=== PATIENT | female | born 1995 | race African-American/Black ===

== ENCOUNTER 2019-06-13 08:00 | Outpatient (CLI) | payer OTHER ==
[2019-06-13 21:41] LABS: TRICHOMONAS VAGINALIS DNA NEGATIVE (NEGATIVE)
== END 2019-06-13 23:59 | disposition home or self-care (01) ==
LOC: LAB.R 08:00
PROVIDERS: ATTEND Nurse Practitioner Obstetrics & Gynecology
DX: Z36.85 Encounter for antenatal screening for Streptococcus B (principal)
CPT/HCPCS: 87491; 87591; 87661; 87797

== ENCOUNTER 2019-06-24 08:00 | Outpatient (CLI) | payer OTHER | END 2019-06-24 23:59 | disposition home or self-care (01) | LOC: LAB.N 08:00 | PROVIDERS: ATTEND Nurse Practitioner Obstetrics & Gynecology | DX: O99.280 Endocrine, nutritional and metabolic diseases complicating pregnancy, unspecified trimester (principal); Z3A.00 Weeks of gestation of pregnancy not specified | CPT/HCPCS: 36415; 84443 ==

== ENCOUNTER 2019-07-05 19:29 | Outpatient (CLI) | payer OTHER ==
[2019-07-05 19:46] VITALS: BP 128/78
--- NOTE | 2019-07-06 07:34 | PROVIDER PROGRESS NOTE ---
- HPI Chief Complaint: Labor Check Current : Current EDU 07/10/19 Gestation 39 Weeks and 2 Days 4 Para 1 Vital Signs Temperature 36.6 C 07/05/19 19:40 Heart Rate 128 H 07/05/19 19:40 Respiratory Rate 16 07/05/19 19:40 Blood Pressure 128/78 07/05/19 19:40 O2 Saturation 98 07/05/19 19:40 Temperature 36.6 C 07/05/19 19:40 Heart Rate 128 H 07/05/19 19:40 Respiratory Rate 16 07/05/19 19:40 Blood Pressure 128/78 07/05/19 19:40 O2 Saturation 98 07/05/19 19:40 - Procedures OB Procedure Performed: NST NST Procedure: NST reactive. Baseline 140s, moderate variability, + accels, one variable deceleration - overall reassuring. Service Date of procedure: 07/05/19 - Plan Plan: [place] presents to [facility] with c/o dark brown vaginal spotting in addition to contractions throughout the day which have been relatively inconsistent and varied in frequency an intensity but are currently every 7-10 minutes. She denies leakage of clear vaginal fluid and reports +FM. She denies abdominal pain or tenderness. She reports dark brown blood spot was noted approximately 1 hour ago when she went to the bathroom and steadily continued for 1 hour. BP normotensive. No abdominal tenderness noted. Pad noted to have very small, dime-sized amount of dark red blood. She was monitored x 1 hour and there was no continued bleeding. NST reactive. Baseline 140s, moderate variability, + accels, one variable deceleration - overall reassuring. She was monitoring x 1 hour secondary to the deceleration and FHR demonstrated a Category I pattern throughout. Contraction pattern remained consistently every 7-10 minutes with soft resting tone. No increase in frequency or intensity noted over the 1 hour period of time. Pt was released home with precautions. NST performed 07/05/2019 NST read 07/06/2019 FINAL DIAGNOSIS: False labor >37wks gestation
== END 2019-07-05 21:05 | disposition home or self-care (01) ==
LOC: WFO 19:29 → FBP 19:34 → WFO 21:05
PROVIDERS: ATTEND Obstetrics & Gynecology
DX: O47.1 False labor at or after 37 completed weeks of gestation (principal); Z3A.37 37 weeks gestation of pregnancy
CPT/HCPCS: 99213

== ENCOUNTER 2019-07-06 03:01 | Inpatient (IN) | payer OTHER ==
[2019-07-06] MEDS ORDERED: ONDANSETRON 4 MG/2 ML VIAL IVP PRN (03:26)
[2019-07-06] MEDS ORDERED: fentaNYL 100 MCG/2 ML VIAL IVP PRN (03:26)
[2019-07-06] MEDS ORDERED: SODIUM CHLORIDE FLUSH 0.9% 10 ML SYRINGE IVP PRN (03:26)
[2019-07-06] MEDS ORDERED: LACTATED RINGERS 1,000 ML IV ONE (03:27)
[2019-07-06] MEDS ORDERED: OXYTOCIN/DEXTROSE 5 % 30 UNIT/500 ML BAG IV ONE (03:27)
[2019-07-06] MEDS ORDERED: OXYTOCIN/DEXTROSE 5 % 30 UNIT/500 ML BAG IV PRN ×2 (04:00→05:11)
[2019-07-06] MEDS ORDERED: LACTATED RINGERS 1,000 ML IV SCH (04:00)
[2019-07-06 04:13] LABS: BASOPHILS % (AUTO) 0.2 %; EOSINOPHILS % (AUTO) 0.1 %; HGB - HEMOGLOBIN 13.3 g/dL (12.0-16.0); LYMPHOCYTES # (AUTO) 1.2 10^3/uL (1.5-3.5); LYMPHOCYTES % (AUTO) 9.2 %; MEAN CORPUSCULAR HEMOGLOBIN 31.9 pg (27.0-31.0); MEAN CORPUSCULAR HGB CONC 34.1 g/dL (32.0-36.0); MEAN CORPUSCULAR VOLUME 93.5 fL (81.0-99.0); MEAN PLATELET VOLUME 10.1 fL (7.9-10.8); MONOCYTES # (AUTO) 0.5 10^3/uL (0.0-1.0); MONOCYTES % (AUTO) 3.9 %; NEUTROPHILS # (AUTO) 10.8 10^3/uL (1.5-6.6); PLT - PLATELET COUNT 306 10^3/uL (130-450); RED BLOOD COUNT 4.17 10^6/uL (4.20-5.40); RED CELL DISTRIBUTION WIDTH 11.9 % (12.0-15.0); WHITE BLOOD COUNT 12.6 x10^3/uL (4.8-10.8)
--- NOTE | 2019-07-06 04:18 | HISTORY & PHYSICAL EXAMINATION ---
Admit History - Visit Reason Visit Reason: Contractions - : 2 Parity: 1 Premature: 0 Ectopic: 0 : 0 Care: positive: [facility] Risk/History: positive: None Complications This : positive: None Smoking Status: Never smoker - Mother's Labs Mother's RH: positive: Positive GBS: positive: Group B Step Negative Rubella Status: positive: Immune Review of Systems - Constitutional Constitutional: denies: Fever, Chills, Malaise - Eyes Eyes: denies: Blurred vision, Spots in vision, Dipolpia - Cardiovascular Cariovascular: denies: Irregular heart rate, Chest pain, Edema - Respiratory Respiratory: denies: SOB at rest - Integumentary Integumentary: denies: Rash, Pruritis - Neurological Neurological: denies: Headache Physical - Abdominal Exam Vital Signs: Temp Pulse Resp BP Pulse Ox 36.5 C 111 H 16 130/86 H 98 07/06/19 03:08 07/06/19 03:08 07/06/19 03:08 07/06/19 03:16 07/06/19 03:08 Contraction Frequency (min/apart): 2-4 Contraction Intensity: positive: Strong Uterine Resting Tone: positive: Soft - Monitoring Heart Rate Baseline: 140 - Presentation Presentation: positive: Vertex - Vaginal Exam Membranes: positive: Membranes intact Dilation (in cm): 9 Effacement (%): 100 Station: positive: -1 Cervical Position: positive: Anterior - Speculum Exam Speculum Exam Performed: positive: No Plan for Labor - Plan For Labor I expect patient to be DC'd or transferred within 96 hours.: Yes Plan for Labor: HPI: This 23yo @ 39.3wks gestation by LMP c/w 9.1wk U/S presented on 07/05/2019 with complaints of vaginal bleeding and contractions. She was monitored x 1 hour and FHR was reassuring, Category I and contractions remained consistently 7-9 minutes apart and were not increasing in frequency or intensit y. SVE was fingertip/50/-3, vertex and she was released home with precautions. She returned on 07/06/2019 @ approximately 0320 with complaints of contractions that rapidly increased in frequency and intensity since 2100 last night. Cervix noted to be 9/100/-1, vertex with intact membranes. She denies vaginal bleeding or leakage of fluid. She reports +FM. She has been a patient of [facility] since 36wks gestation at which time she transferred care from [facility] where she had received consistent care through the duration of her . Her has been complicated only by new diagnosis of hypothyroidism for which she was given a trial of 25mcg levothyroxine which she took PO daily x 30 days and then stopped. Her labs have remained WNL. OB Hx: G1: elective termination G2: 2016 SAB G3: 02/05/2017 @ 39wks, , epidural, Male, 6lbs 9oz, IOL due to concerns for IUGR G4: Current Dating criteria: LMP 10/03/2018 - AISHA Initial U/S @ 9.1wks gestation c/w LMP dating Medications: PNV Allergies: Pencillin PMHx: hypothyroidism isolated to and resolved Surgical Hx: none Social Hx: Never smoker, no ETOH or IVDA. currently deployed. G randmother coming for help with her son tomorrow Family Hx: FOB brother - sickle cell labs: O positive, antibody negative Rubella immune Genetic testing: CF neg; serum integrated screen negative TSH 02/14/19 0.24; 04/25/19 Free T4 1.1 Glucola 118 GBS NEG GC/CT neg Immunizations Influenza 02/11/2019 Tdap 04/29/2019 Physical Exam: Normocephalic, atraumatic Heart RRR w/o M/G/R Lungs CTAB Abdomen gravid, soft, nontender EFW 3200g SVE 9/100/0, vertex with intact membranes followed by AROM at 0340 FHR baseline 140s, moderate variability, + accels, no decels Contractions palpate firm every 2-4 minutes with soft resting tone Bilaeral LE's no edema. Assessment: 23yo @ 39.3wks gestation by LMP c/w 9.1wk U/S Active labor GBS neg Plan: Admit for expectant management Continuous monitoring Anticipate
--- NOTE | 2019-07-06 04:21 | PROVIDER PROGRESS NOTE ---
Labor Progress Note - Uterine Monitoring Uterine Monitoring Mode: positive: External toco Contraction Frequency (min/apart): 2-4 Contraction Intensity: positive: Strong Uterine Resting Tone: positive: Soft - Monitoring Monitor Mode: positive: External ultrasound Heart Rate Baseline: 140 Heart Rate Variability: positive: Moderate (6-25 bmp) Accelerations: positive: Present, 15x15 Decelerations: positive: Early, Intermittent (<50% x20 min) Strip Review: positive: Category I - Vaginal Exam Dilation (in cm): anterior lip Effacement (%): 100 Station: 0 Cervical Position: Anterior - Labor Progress Note Labor Progress Note/Additional Text: S: Breathing through contractions. Lack of support and has 2 year old son with her. Talking to her and mother on FaceTime. Mood is good. Feeling intermittently increased pressure. O: FHR baseline 140s, moderate variability, + accels, early decelerations Contractions palpate firm every 2-4 minutes with soft resting tone SVE deferred at this time A: 23yo 2 39.3wks gestation by LMP c/w 9.1wk U/S Active labor GBS neg P: Encouraged position changes in bed Anticipate
[2019-07-06] MEDS ORDERED: WITCH HAZEL/GLYCERIN 1 PAD TOP PRN (05:10)
[2019-07-06] MEDS ORDERED: HYDROCORTISONE 1% CREAM 28 GM TUBE PR PRN (05:10)
--- NOTE | 2019-07-06 05:10 | DELIVERY NOTE ---
Delivery Note - Labor Labor: positive: Spontaneous - Delivery Method Delivery Method: positive: Spontaneous vaginal delivery - Presentation Presentation: positive: Vertex, SIVAKUMAR - left occiput anterior - Nuchal Cord Nuchal Cord: positive: Present - Amniotic Fluid Description Amniotic Fluid Description: positive: Light meconium - Episiotomy Type Episiotomy Type: positive: None - Laceration Laceration: positive: None - Delivery Outcome Delivery Outcome: positive: Livebirth - [place]: positive: Placed in direct skin contact with mother, Bulb syringe, Stimulated, Warmed, [place] used sex: positive: Female - Cord Cord: positive: 3 vessels - Placenta Placenta: positive: Intact, Spontaneous - Estimated Blood Loss Estimated Blood Loss (in cc): 150 - Post Delivery Events Post Delivery Events: positive: No post delivery events - Delivery Comments (Free Text/Narrative) Delivery Comments (Free Text/Narrative): Labor: This 23yo @ 39.3wks gestation presented on 07/06/2019 with c/o contractions which had increased in frequency and intensity over the past several hours. Upon arrival cervix was 9/100/-1, vertex with intact membranes. FHR demonstrated Category I pattern throughout labor. Normal labor course. AROM occurred at 0340 and was noted to be lightly meconium stained. Urge to push shortly after and pt was noted to be c/c/+1 at 0430 with onset of active pushing effort at 0432. : Normal of a viable female on 07/06/2019 @ 0447. Nuchal cord x 1 and pt delivered through the cord. The was stimulated, dried, and placed skin to skin. 's 7/9 at 1 and 5 min respectively. The umbilical cord was allowed to stop pulsating at which time it was doubly clamped and cut by CNM. Pitocin administered via IV for hemostasis. Cord blood was obtained. EBL 150mL. Fourth stage: Uterine fundus firm and there is no excessive bleeding. The perineum, vagina, and cervix were inspected and found to be intact. Breastfeed ing initiated. Family bonding well. Both mother and baby were left in stable condition.
[2019-07-06] MEDS: IBUPROFEN 800 MG TABLET PO SCH ×2 (05:28→11:51)
[2019-07-06] MEDS ORDERED: ACETAMINOPHEN 500 MG TABLET PO SCH (06:00)
[2019-07-06] MEDS: DOCUSATE SODIUM 100 MG CAPSULE PO SCH ×2 (09:26→20:57)
--- NOTE | 2019-07-07 08:07 | Discharge Plan ---
Discharge Plan Problem Reviewed?: Yes Disposition: Home, Self Care Condition: Good Diet: Regular Activity Restrictions: No Restrictions Shower Restrictions: No Weight Bearing: Full Weight No Smoking: If you smoke, Please STOP! Call for help. Follow-up with: Aimee Mondragon CNM, ARNP [Provider Admit Priv/Credential] -
--- NOTE | 2019-07-07 08:07 | PROVIDER PROGRESS NOTE ---
Subjective - Subjective Subjective: FINAL PROGRESS NOTE: S: Bonding well with baby. without difficulty. Was up a significant portion of the night feeding her as she wanted to eat all the time so she is feeling tired but otherwise well. She denies pain. Reports some mild/moderate cramping with nursing but feels well controlled with oral medications. Bleeding decreased and is light. She is excited to get to go home today. Has the support of her grandmother. O: BP 119/79, HR 79, RR 16, T 36.7 Heart RRR w/o M/G/R, Lungs CTAB, abdomen soft and nontender with fundus firm at U-1, bilateral LE's no edema. Light lochia rubra. A: 23yo -->P2 PPD#1 s/p TSVD of viable female Perineum intact P: Reviewed pp self care and warning s/sx Advised continuation of PNV while Advised continuation of ibuprofen and tylenol OTC as needed for pain Planning minipill for contraception - will initiate at pp visit. [facility] pp visit or sooner PRN. Pt verbalized understanding and agrees to above plan. She denies further questions or concerns at this time. Objective - Vital Signs/Intake & Output Vital Signs: Vital Signs x48h Temp Pulse Resp BP Pulse Ox 07/07/19 04:16 36.7 C 79 16 119/79 100 Intake & Output: Intake & Output 07/04/19 07/05/19 07/06/19 07/07/19 23:59 23:59 23:59 23:59 Intake Total 1500 Output Total 1350 Balance 150 - Lab Results Fish Bones: 07/06/19 03:40
--- NOTE | 2019-07-07 08:17 | DISCHARGE SUMMARY ---
Physician: ELLIOTT Molina DATE OF ADMISSION: 07/06/2019 DATE OF DISCHARGE: 07/07/2019 DIAGNOSES ON DISCHARGE: A 23-year-old G4, P1-0-2-1 with complaints of contractions, which had increa sed in frequency and intensity over the past several hours. HISTORY OF PRESENT ILLNESS: Upon arrival, her cervix was 2 cm dilated, 100% effaced, -1 station, lita blank position with intact membranes. heart rate pattern demonstrated a category 1 pattern throu ghout labor. She progressed to complete and artificial rupture of membranes occurred at 0340 and was noted to be lightly meconium stained. She spontaneously delivered a viable female on 020 at 0447. Apgars were 7 and 9 at 1 and 5 minutes, respectively. EBL 150 mL. The perineum, vagin a and cervix were inspected and found to be intact. She has been doing well in her course. She is ambulating and tolerating a regular diet. She is urinating without difficulty and her lochia is normal. Her pain is well controlled with oral medications. She will be discharged home today on day #1 with instructions to continue he r vitamin while , and to continue taking ibuprofen and Tylenol [id number] as needed for pain management. She intends to follow up with myself at [facility] in 3 weeks for routine visit or sooner if needed. She has been given precautions to call if she has any worsening fevers, chills, abdominal pain, increased bleeding or foul-smelling vaginal lochia. TD: 07/07/2019 08:13
[2019-07-07 08:53] VITALS: BP 117/78
[2019-07-07] MEDS: IBUPROFEN 800 MG TABLET PO SCH (09:05)
[2019-07-07] MEDS: DOCUSATE SODIUM 100 MG CAPSULE PO SCH (09:05)
--- NOTE | 2019-07-07 14:19 | Labor Flowsheet ---
Labor Flowsheet Datetime Report Generated by CPN: 07/07/2019 14:19 Datetime: 07/07/2019 07:54 VITAL SIGNS NBP Sys/Lali/Mean (mmHg): 117 : 78 : 87 Pulse: 90 COMMUNICATION LaborFlag: Labor Datetime: 07/06/2019 09:13 SpO2 (%): 99 Datetime: 07/06/2019 04:58 Membranes Ruptured Date/Time: 07/06/2019 03:40 Amniotic Fluid Odor: Normal Datetime: 07/06/2019 04:47 UTERINE ACTIVITY Monitor Mode: External Frequency (min): 1.5-4 Quality: Strong Duration (sec): 60-90 Pattern: Normal: <= 5 Contractions in 10 Minutes Resting Tone (Palpate): Relaxed ASSESSMENT A Monitor Mode: Telemetry FHR Baseline Rate : 135 Variability: Moderate 6-25 bpm Accelerations: 15X15 Decelerations: Variable Category: Category II Datetime: 07/06/2019 04:39 STAGE 2 Pushing: Urge to Push; Involuntary Pushing Pushing Position: Pushing with Contractions; Pushing Lithotomy Pushing Progress: Descent with Pushing; Pushing Effectively with Contractions Datetime: 07/06/2019 04:30 VAGINAL EXAM Dilatation (cm): 10.0 Effacement (%): 100 Station: 1 Exam by: A. Alanna, CNM Datetime: 07/06/2019 04:25 PATIENT CARE Patient Care Comments: closed knee Datetime: 07/06/2019 04:00 Stage of : Labor
== END 2019-07-07 14:00 | disposition home or self-care (01) | DRG 807 ==
LOC: WFO 03:01 → FBP 03:03 → WFO 03:25 → FBP 03:26
PROVIDERS: ADMIT Nurse Practitioner Obstetrics & Gynecology; ATTEND Nurse Practitioner Obstetrics & Gynecology
PROC: 10E0XZZ Delivery of Products of Conception, External Approach (ICD-10-PCS; principal; 2019-07-06)
PROC: 10907ZC Drainage of Amniotic Fluid, Therapeutic from Products of Conception, Via Natural or Artificial Opening (ICD-10-PCS; 2019-07-06)
DX: O99.284 Endocrine, nutritional and metabolic diseases complicating childbirth (principal); Z37.0 Single live birth; O69.9XX0 Labor and delivery complicated by cord complication, unspecified, not applicable or unspecified; O77.0 Labor and delivery complicated by meconium in amniotic fluid; Z3A.39 39 weeks gestation of pregnancy
CPT/HCPCS: 85025; 86850; 86900; 86901; A9270; J7120; 99213

== ENCOUNTER 2020-05-29 07:00 | Outpatient (CLI) | payer OTHER ==
[2020-06-01 13:11] LABS: BASOPHILS % (AUTO) 0.3 %; EOSINOPHILS # (AUTO) 0.1 10^3/uL (0.0-0.7); HGB - HEMOGLOBIN 12.9 g/dL (12.0-16.0); LYMPHOCYTES # (AUTO) 1.9 10^3/uL (1.5-3.5); LYMPHOCYTES % (AUTO) 31.5 %; MEAN CORPUSCULAR HEMOGLOBIN 31.5 pg (27.0-31.0); MEAN CORPUSCULAR HGB CONC 32.8 g/dL (32.0-36.0); MEAN CORPUSCULAR VOLUME 96.1 fL (81.0-99.0); MEAN PLATELET VOLUME 9.7 fL (7.9-10.8); MONOCYTES # (AUTO) 0.4 10^3/uL (0.0-1.0); MONOCYTES % (AUTO) 6.8 %; NEUTROPHILS # (AUTO) 3.7 10^3/uL (1.5-6.6); NEUTROPHILS % (AUTO) 60.2 %; PLT - PLATELET COUNT 259 10^3/uL (130-450); RED BLOOD COUNT 4.09 10^6/uL (4.20-5.40); RED CELL DISTRIBUTION WIDTH 11.6 % (12.0-15.0); WHITE BLOOD COUNT 6.2 x10^3/uL (4.8-10.8)
== END 2020-05-29 23:59 | disposition home or self-care (01) ==
LOC: LAB 07:00
PROVIDERS: ATTEND Obstetrics & Gynecology
DX: Z30.2 Encounter for sterilization (principal); Z20.822 Contact with and (suspected) exposure to COVID-19
CPT/HCPCS: 85025

== ENCOUNTER 2020-06-07 06:39 | Day surgery (SDC) | payer OTHER ==
--- NOTE | 2020-06-03 11:49 | HISTORY & PHYSICAL EXAMINATION ---
HPI - History of Present Illness HPI Comment/Other: Patient is a 24-year-old G4, P2 here for preoperative evaluation for bilateral tubal ligation. Patient reports that she has had 4 pregnancies with 2 deliveries. She has had 1 SAB and 1 TAB. She has no history of abnormal Pap smears but she is due for a Pap and desires this to be done under anesthesia. She had been taking oral contraceptives and stopped on April 01 after her partner had been deployed she has not been sexually active since March when her went overseas. She has no significant past medical history. She did an umbilical hernia repair at age 6. She has been counseled by Aimee Mondragon in February 2020 and understands that bila teral tubal ligation is an irreversible and permanent procedure that will render her unable to conceive spontaneously following the procedure. She is confident in her decision to move forward with a sterilization. Allergies: PENICILLIN V POTASSIUM (Critical) Medications: ORTHO MICRONOR 0.35 MG ORAL TABLET (NORETHINDRONE) Take one tablet by mouth once daily; Route: ORAL PRE- FORMULA ORAL TABLET ( [id number]) one by mouth daily; Route: ORAL Problems: Preoperative examination (ICD-V72.84) ([id number]) Amenorrhea (ICD-626.0) (SIX57-D65.2) Sterilization counseling (ICD-V25.09) (AAU75-G02.09) care and examination of lactating mother (ICD-V24.1) ([id number]-V59.1) Thyroid disorder complicating , unspecified trimester (ICD-648.13) ([id number]-O37.280) Family History Summary: Family History Reviewed: 05/29/2020 Family History of Other Medical Problems for Other, FOB brother- sickle cell - Entered On: 05/16/2019 Social History Summary: Patient has never smoked. Patient has never used smokeless tobacco. 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 No Are you currently using contraception? Yes Are you satisfied with your current control? Yes Education provided to patient? No Completed by: JUSTINO Schmidt (May 29, 2020 1:39 PM) What is your current type of control? Female sterilization End Method: Female sterilization Past Medical History: Reviewed and updated today: None Past Surgical History: Reviewed and updated today: umbical hernia repair. [employer] Review of Systems ROS Comments: As per HPI, otherwise remaining systems are negative. Physical Constitutional: GEN: NAD HEAD: NCAT EYES: No scleral icterus or conjunctival injection NECK: No cervical LAD or TM CV: RRR RESP: CTAB, normal effort ABD: S&NT/ND PSYCH: appropriate affect NEURO: alert and oriented, normal gait and coordination EXT: WWP Impression & Recommendations: Problem # 1: Preoperative examination (ICD-V72.84) ([id number]) Preop examination for laparoscopic bilateral salpingectomy We discussed risks, benefits, alternatives. Confirmed [facility] BTL consents signed 02/2020 We reviewed that this is an irreversible procedure that janneth render her unable to spontaneously conceive in the future. She confirmed her commitment to proceed. Reviewed all surgical procedures carry risks of bleeding, infection, and damage nearby tissue and organs. Discussed the risk of infection with blood transfusion is relatively low. Risk of HIV is 1 in 2 million nationwide, risk of hepatitis is 1/million nationwide. Reviewed for possibility of transfusion reaction and possible management with medications. She is provided consent for blood transfusion. Reviewed lower risk procedure for infection and antibiotics are not indicated for prophylaxis. We discussed the anatomical proximity of other organs near the fallopian tubes including but not limited to the ovaries, bladder, ureters, and bowel. As surgeons, we used a number of surgical to techniques to avoid damaging any of these other organs. We reviewed, that despite her best efforts, sometimes injury occurs to these organs. We discussed that this may cause complicated po st operative course. We reviewed that with bleeding that cannot be controlled or with limited residual stroma, she may undergo oophorectomy. That will be avoided as much as possible and will be conducted only under scenarios that fully preclude salvage of the ovary. We also discussed the possibility of converting to an open or procedure. She provided consent to all of the above as well and pap smear under anesthesia. We will proceed to surgery with a scheduled operating room date. Orders: PRE OP -[id number] ([id number]) PMH/PSH - Past Medical History Cardiovascular: positive: None Respiratory: positive: None Endocrine/Autoimmune: positive: None GI: positive: None : positive: None HEENT: positive: Chronic vision loss Psych: positive: None Musculoskeletal: positive: None Derm: positive: Eczema MRSA Hx?: No - Past Surgical History General: positive: Other Social & Family Hx - Social History Smoking Status: Never smoker Meds/Allgy - Home Medications Home Medications: Ambulatory Orders Medication Instructions Recorded Confirmed No Known Home Medications 05/31/20 05/31/20 - Allergies Allergies/Adverse Reactions: Allergies Allergy/AdvReac Type Severity Reaction Status Date / Time Penicillins Allergy Hives Verified 07/06/19 05:09
[~2020-06-07 06:39] MED LIST: ACETAMINOPHEN 1,000 MG/100 ML 100 ML IV ONE; CELECOXIB 100 MG CAPSULE PO ONE; GABAPENTIN 400 MG CAPSULE ONE
[2020-06-07 07:03] LABS: HCG UR QUAL NEGATIVE
[2020-06-07] MEDS ORDERED: LACTATED RINGERS 1,000 ML IV ONE ×2 (07:12→10:05)
[2020-06-07] MEDS ORDERED: LIDOCAINE-MPF 2% 5 ML VIAL ONE (07:13)
[2020-06-07] MEDS ORDERED: PROPOFOL 200 MG/20 ML VIAL IVP ONE (07:13)
[2020-06-07] MEDS ORDERED: ONDANSETRON 4 MG/2 ML VIAL ONE (07:13)
[2020-06-07] MEDS ORDERED: ROCURONIUM 50 MG/5 ML VIAL ONE (07:13)
[2020-06-07] MEDS ORDERED: DEXAMETHASONE 4 MG/ML VIAL ONE (07:13)
[2020-06-07] MEDS ORDERED: fentaNYL 100 MCG/2 ML VIAL ONE (07:16)
[2020-06-07] MEDS ORDERED: MIDAZOLAM 2 MG/2 ML VIAL ONE (07:16)
--- NOTE | 2020-06-07 07:20 | ANESTHESIA ---
Pre-Anesthesia VS, & Labs - Diagnosis Desires sterilization - Procedure bilateral salpingectomy with pap smear Vital Signs: Temp Pulse Resp BP Pulse Ox 36.2 C L 72 16 129/73 100 06/07/20 06:34 06/07/20 06:34 06/07/20 06:34 06/07/20 06:34 06/07/20 06:34 Height: 5 ft 6 in Weight (kg): 89.5 kg Body Mass Index: 31.8 BMI Classification: Obese - NPO >8 hours - Is Patient ?: No Home Medications and Allergies Home Medications: Ambulatory Orders No Known Home Medications 05/31/20 No Known Home Medications 05/31/20 Allergies/Adverse Reactions: Allergies Allergy/AdvReac Type Severity Reaction Status Date / Time Penicillins Allergy Hives Verified 07/06/19 05:09 Anes History & Medical History - Anesthetic History Anesthesia Complications: reports: No previous complications - Medical History Cardiovascular: reports: None Pulmonary: reports: None Gastrointestinal: reports: None Urinary: reports: None Neuro: reports: None Musculoskeletal: reports: None Endocrine/Autoimmune: reports: None Blood Disorders: reports: None Skin: reports: Eczema Smoking Status: Never smoker Psychosocial: reports: No issues indicated History of Cancer?: No - Surgical History General: Other Exam General: Alert, Oriented x3, Cooperative, No acute distress Dental: WNL Mouth Openin Fingerbreadth Neck Mobility: Normal Mallampati classification: II Thyromental Distance: 4-6 cm Respiratory: Lungs clear, Normal breath sounds, No respiratory distress, No accessory muscle use Cardiovascular: Regular rate, Normal S1, Normal S2, No murmurs Mental/Cognitive Status: Alert/Oriented X3, Normal for patient Plan Anesthesia Type: General Consent for Procedure(s) Verified and Reviewed: Yes Code Status: Attempt Resuscitation ASA classification: 1-Healthy patient Is this case an emergency?: No
[2020-06-07] MEDS ORDERED: LIDOCAINE 2%-EPI 1:100000 20 ML MDV ONE (07:34)
[2020-06-07] MEDS ORDERED: BUPIVACAINE 0.25% PF 30 ML VIAL ONE (07:34)
[2020-06-07] MEDS ORDERED: SCOPOLAMINE PATCH TOP SCH (08:00)
[2020-06-07] MEDS ORDERED: BUPIVACAINE 0.25% PF 30 ML VIAL SUBQ ONE ×2 (09:00)
[2020-06-07] MEDS ORDERED: LIDOCAINE 2%-EPI 1:100000 20 ML MDV SUBQ ONE ×2 (09:01)
[2020-06-07] MEDS ORDERED: oxyCODONE 5 MG TABLET PO PRN (10:05)
--- NOTE | 2020-06-07 10:10 | OPERATIVE REPORT ---
Operative Report - General Procedure Date: 06/07/20 Planned Procedure: Bilateral salpingectomy with pap smear Pre-Op Diagnosis: Desires sterilization. Due for cervical cancer screening Procedure Performed: Bilateral salpingectomy with pap smear Post Op Diagnosis: Same with bilateral paratubal cysts - Procedure Note Primary Surgeon: Oskar Irvin MD Secondary Surgeon: Marisela Colunga MD Anesthesia Provider: Oskar Partida CRNA Anesthesia Technique: General ET tube Pathology: Bilateral fallopian tubes. Pap collected and sent through clinic IV Fluids (mL): 900 Estimated Blood Loss (mL): 5 Urine Output (mL): 0 (voided prior to procedure) Indications: 24 yo female who desires sterilization and is due for cervical cancer screening Findings: Normal appearing uterus and ovaries. Both fallopian tubes had 2 cm paratubal cysts that were too frirm to decompress and pass through the 5 mm ports. Normal liver edge and survey of the abdomen. Complications: None - Other Other Information/Narrative: Risks benefits and alternatives of the procedure were reviewed. Consent was again confirmed. Patient was brought to the operating room and underwent general anesthesia. She was placed in dorsal lithotomy position with legs resting in yellowfin stirrups. SCDs were in place and activated. Prior to prepping, a speculum was placed and pap smear was collected. Instruments were then removed from the vagina. She was then prepped and draped in the usual sterile fashion. Surgical timeout was performed. Bimanual exam was performed. Sterile speculum was placed. The cervix was visualized. Uterus sounded to 7 cm. The Humi uterine manipulator was placed. The base of the umbilicus was anesthetized with intradermal injection of 2% lidocaine with epinephrine mixed with 0.25% Marcaine. A 5 mm skin incision was made with a scalpel. A 5 mm blunt trocar was inserted under direct visualizatio n using Visiport. Once the port was confirmed to be placed intraperitoneally, the abdomen was insufflated to 15 mmHg with CO2 gas Exploration of the abdomen and pelvis was confirmed that no injury was sustained with placement of the trocar. Two additional 5 mm ports were placed in the right and left lower quadrants, taking care to avoid the epigastric arteries, while under direct visualization via laparoscopic guidance. The abdomen was explored with the laparoscope, with findings as noted. The left fallopian tube was grasped and elevated at the fimbriated end. The underlying mesosalpinx was sealed and resected to the insertion point on the uterine cornua using the Ligasure device. The tube was then sealed and transected at the insertion point at the cornua. The tube was put aside in the cul de sac. The procedure was repeated on the right side. The right tube also had large firm peritubal cysts that were not amenable to removal from the pelvis through the lateral port. It was put aside. The left lateral port was expalned to accommodate a 100 mm port. The 10 mm port was palced and an Endocatch bag was used to retrieve both tubes from the pelvis. Good hemostasis was noted. The 10 mm port was removed and the fascia was closed with the Jewel Tomason device. The abdomen was partially desufflated. Pedicles were observed under decreased pressure and good hemostasis was again confirmed. Abdomen was then completely desufflated. All instruments were removed from the abdomen. Skin was closed with interrupted subcuticular stitches using 4-0 Monocryl. Dermabond was applied over the suture sites. The Humi manipulator was removed from the uterus. Again, good hemostasis was noted. The final sponge needle and instrument counts were correct at completion of the procedure patient was awakened taken to the postanesthesia care unit in stable condition. Dr. Colunga assisted with suturing and retraction.
[2020-06-07] MEDS ORDERED: HYDROmorphone 0.5 MG/0.5 ML SYRINGE IVP PRN (10:33)
[2020-06-07] MEDS ORDERED: fentaNYL 100 MCG/2 ML VIAL IVP PRN (10:33)
[2020-06-07] MEDS ORDERED: METOCLOPRAMIDE 10 MG/2 ML VIAL IVP PRN (10:33)
[2020-06-07] MEDS ORDERED: ePHEDrine 50 MG/ML VIAL IVP PRN (10:33)
[2020-06-07] MEDS ORDERED: MORPHINE 2 MG/ML CARPUJECT IVP PRN (10:33)
[2020-06-07] MEDS ORDERED: NALOXONE 0.4 MG/ML VIAL IVP PRN (10:33)
[2020-06-07] MEDS ORDERED: ONDANSETRON 4 MG/2 ML VIAL IVP PRN (10:33)
[2020-06-07] MEDS ORDERED: ATROPINE ABBOJECT 1 MG/10 ML SYRINGE IVP PRN (10:33)
[2020-06-07] MEDS ORDERED: LACTATED RINGERS 1,000 ML IV SCH (11:00)
--- NOTE | 2020-06-07 11:05 | ANESTHESIA POST OP EVALUATION ---
Anesthesia Post Eval - Post Anesthesia Eval Vitals: Last Vital Signs Temp 36.7 C 06/07/20 10:41 Pulse 75 06/07/20 10:41 Resp 19 06/07/20 10:41 BP 135/69 H 06/07/20 10:41 Pulse Ox 100 06/07/20 10:41 CV Function Including HR & BP: positive: Stable Pain Control: positive: Satisfactory Nausea & Vomiting: positive: Negative Mental Status: positive: Patient Participates Respiratory Status: Airway Patent Hydration Status: Satisfactory Anesthesia Complications: positive: None
[2020-06-07] MEDS ORDERED: HYDROcod/ACETAM 5/325 MG TABLET ONE (11:40)
[2020-06-07 11:59] VITALS: BP 130/76
[2020-06-07] MEDS ORDERED: ONDANSETRON ODT 4 MG TABLET ONE (12:31)
== END 2020-06-07 06:40 | disposition home or self-care (01) ==
LOC: SDS 06:39
PROVIDERS: ATTEND Obstetrics & Gynecology
PROC: 0UT74ZZ Resection of Bilateral Fallopian Tubes, Percutaneous Endoscopic Approach (ICD-10-PCS; principal; 2020-06-07 07:30)
DX: Z30.2 Encounter for sterilization (principal); N83.8 Other noninflammatory disorders of ovary, fallopian tube and broad ligament; E66.9 Obesity, unspecified; Z68.31 Body mass index [BMI] 31.0-31.9, adult
CPT/HCPCS: 58661; 81025; 88142; A9270; J0131; J3490; J7120; Q0162

== ENCOUNTER 2021-08-08 18:59 | Outpatient (CLI) | payer OTHER ==
--- NOTE | 2021-08-09 11:07 | Ultrasound Report ---
PROCEDURE: Pelvic w/Transvaginal INDICATIONS: ABN UTERINE BLEEDING TECHNIQUE: Real-time scanning was performed of the pelvic organs, with image documentation. Additional endovagi nal scanning was necessary due to incomplete visualization of the adnexal and endometrial structures by transabdominal scanning. COMPARISON: None. FINDINGS: Transabdominal scanning: Limited scanning through the kidneys shows no hydronephrosis. No pathologi c free abdominal or pelvic fluid. Endovaginal scanning: Uterus: Uterus is normal in size at 8.6 x 3.9 x 5.3 cm. The endometrium measures 6.5 mm in combined thickness. Mild appearance of endometrial fluid is present. Ovaries: Right ovary measures 4.7 x 2.1 x 3.8 cm, volume 18.2 cc. There is a focus of heterogeneous echogenicity measuring 1.7 x 1.3 x 2.0 cm. Left ovary measures 3.3 x 1.7 x 3.0 cm, volume 8.8 cc. IMPRESSION: Endometrial thickness is within normal limits with mild appearance of fluid. This is overall nonspeci fic. Suspected involuting right ovarian hemorrhagic cyst. Reviewed by: Betty Anaya MD on 08/09/2021 11:05 AM PDT Approved by: Betty Anaya MD on 08/09/2021 11:05 AM PDT Station ID: [id number]
== END 2021-08-08 19:00 | disposition home or self-care (01) ==
LOC: DI 18:59
PROVIDERS: ATTEND Obstetrics & Gynecology
DX: N93.9 Abnormal uterine and vaginal bleeding, unspecified (principal)